=== PATIENT | male | born 1965 | race Caucasian/White ===

== ENCOUNTER 2018-10-13 14:26 | Inpatient (IN) | payer MEDICARE, MEDICAID ==
[~2018-10-13] VITALS: Ht 167.6 cm; Wt 84.6 kg
[~2018-10-13 14:26] MED LIST: LAMO200T PO; LISI-660 PO; OLAN10TA3 PO; TEMA15CA PO; TRAZ150 PO; XALA2.5OS OU
[2018-10-13] MEDS ORDERED: HALOPERIDOL 5 MG TABLET PO PRN (15:15)
[2018-10-13] MEDS ORDERED: LORazepam 2 MG TABLET PO PRN (15:15)
[2018-10-13] MEDS ORDERED: LISI-661 PO (15:17)
[2018-10-13] MEDS ORDERED: TAFL1DRO OU (15:17)
[2018-10-13] MEDS ORDERED: TRAZ-220 PO (15:17)
[2018-10-13] MEDS ORDERED: ZOLP10TA7 PO (15:18)
[2018-10-13 15:34] VITALS: BP 156/93
[2018-10-13 16:31] VITALS: BP 126/89
[2018-10-13] MEDS ORDERED: MAG HYDROX/AL HYDROX/SIMETH ES 30 ML SUSPENSION UDCUP PO PRN (16:45)
[2018-10-13] MEDS ORDERED: ACETAMINOPHEN 325 MG TABLET PO PRN (16:45)
[2018-10-13] MEDS ORDERED: MAGNESIUM HYDROXIDE SUSPENSION 30 ML UDCUP PO PRN (16:45)
[2018-10-13] MEDS ORDERED: ONDANSETRON HCL 4 MG TABLET PO PRN (16:45)
[2018-10-13] MEDS ORDERED: IBUPROFEN 600 MG TABLET PO PRN (16:45)
[2018-10-13] MEDS ORDERED: BENZOCAINE/MENTHOL LOZENGE MM PRN (16:45)
[2018-10-13] MEDS ORDERED: ALBUTEROL SULFATE HFA 90 MCG/PUFF 8 GM INHALER IH PRN (16:45)
[2018-10-13] MEDS ORDERED: BACITRACIN 28.4 GM OINTMENT TP PRN (16:45)
[2018-10-13] MEDS ORDERED: PETROLATUM,WHITE 28 GM JELLY TP PRN (16:45)
[2018-10-13] MEDS ORDERED: CloNIDine HCL 0.1 MG TABLET PO PRN (16:45)
[2018-10-13] MEDS ORDERED: PNEUMOCOCCAL VACCINE POLYVALENT 0.5 ML VIAL [PPSV23] IM ONE (17:00)
[2018-10-13] MEDS: LamoTRIgine 100 MG TABLET PO SCH (20:56)
[2018-10-13] MEDS: LISINOPRIL 10 MG TABLET PO SCH (20:56)
[2018-10-13] MEDS: OLANZapine 7.5 MG TABLET PO SCH (20:56)
[2018-10-13] MEDS: TraZODone HCL 100 MG TABLET PO SCH (20:57)
[2018-10-13] MEDS: ZOLPIDEM TARTRATE 10 MG TABLET PO PRN (21:18)
[2018-10-13] MEDS: LOPERAMIDE HCL 2 MG CAPSULE PO PRN (23:33)
[2018-10-14 00:01] VITALS: BP 126/84
[2018-10-14 07:19] LABS: BASOPHILS % (AUTO) 1.5 % (0.0-2.0); HEMATOCRIT 46.6 % (41-53); HEMOGLOBIN 15.6 g/dL (13.5-17.5); LYMPHOCYTES # (AUTO) 1.4 K/uL (1.0-4.8); LYMPHOCYTES % (AUTO) 27.7 % (22.0-44.0); MEAN CORPUSCULAR HEMOGLOBIN 29.4 pg (26.0-34.0); MEAN CORPUSCULAR HGB CONC 33.5 G/dL (31.0-37.0); MEAN CORPUSCULAR VOLUME 88 fL (80-100); MONOCYTES # (AUTO) 0.5 K/uL (0.1-1.0); MONOCYTES % (AUTO) 10.5 % (2.0-9.0); NEUTROPHILS # (AUTO) 2.6 K/uL (1.8-7.7); NEUTROPHILS % (AUTO) 52.3 % (40.0-70.0); PLATELET COUNT (AUTO) 252 K/uL (150-450); RED BLOOD CELL COUNT(AUTO) 5.32 MIL/uL (4.50-5.90)
[2018-10-14 08:04] LABS: ALANINE AMINOTRANSFERASE 33 U/L (12-78); ALKALINE PHOSPHATASE 85 U/L (46-116); ANION GAP 10 mmol/L (8-16); ASPARTATE AMINOTRANSFERASE 16 U/L (15-37); BILIRUBIN,TOTAL 0.6 mg/dL (0.1-1.0); CALCIUM, TOTAL 8.8 mg/dL (8.8-10.5); CARBON DIOXIDE 28 mmol/L (22-29); CHLORIDE 105 mmol/L (98-107); CHOL/HDL RATIO 3.6 (4.2-7.3); CHOLESTEROL 155 mg/dL (131-200); CREATININE 1.06 mg/dL (0.60-1.30); FREE T4 (FREE THYROXINE) 1.18 ng/dL (0.76-1.46); GLOMERULAR FILTR. RATE CALC > 60 mL/min (>60); GLUCOSE,RANDOM 114 mg/dL (70-110); HDL CHOLESTEROL 43 mg/dL (40-60); LDL CHOL (CALC.) 96 mg/dL (0-130); POTASSIUM 4.8 mmol/L (3.5-5.1); SODIUM SERUM 143 mmol/L (136-145); THYROID STIMULATING HORMONE 3.95 uIU/mL (0.36-3.74); TOTAL PROTEIN, SERUM 7.2 g/dL (6.4-8.2); TRIGLYCERIDES 81 mg/dL (15-150); UREA NITROGEN, BLOOD 13 mg/dL (7-18)
[2018-10-14 08:42] VITALS: BP 120/66
[2018-10-14] MEDS: DOCUSATE SODIUM 100 MG CAPSULE PO SCH (09:00)
[2018-10-14] MEDS: LATANOPROST 0.005% 2.5 ML OPHTHALMIC SOLUTION OU SCH (09:14)
[2018-10-14] MEDS: OMEPRAZOLE 20 MG CAPSULE PO SCH (09:14)
[2018-10-14] MEDS: LOPERAMIDE HCL 2 MG CAPSULE PO PRN (13:43)
[2018-10-14 16:21] VITALS: BP 122/70
[2018-10-14] MEDS: TraZODone HCL 100 MG TABLET PO SCH (21:24)
[2018-10-14] MEDS: OLANZapine 7.5 MG TABLET PO SCH (21:24)
[2018-10-14] MEDS: LISINOPRIL 10 MG TABLET PO SCH (21:24)
[2018-10-14] MEDS: LamoTRIgine 100 MG TABLET PO SCH (21:24)
[2018-10-14] MEDS: ZOLPIDEM TARTRATE 10 MG TABLET PO PRN (21:25)
[2018-10-15 05:52] VITALS: BP 108/60
[2018-10-15] MEDS: LEVOTHYROXINE SODIUM 25 MCG TABLET PO SCH (06:40)
[2018-10-15 08:24] VITALS: BP 105/65
[2018-10-15] MEDS: DOCUSATE SODIUM 100 MG CAPSULE PO SCH (08:47)
[2018-10-15] MEDS: OMEPRAZOLE 20 MG CAPSULE PO SCH (08:47)
[2018-10-15] MEDS: LATANOPROST 0.005% 2.5 ML OPHTHALMIC SOLUTION OU SCH ×2 (09:00→15:55)
[2018-10-15 16:54] VITALS: BP 107/60
[2018-10-15] MEDS: LISINOPRIL 10 MG TABLET PO SCH (20:33)
[2018-10-15] MEDS: LamoTRIgine 100 MG TABLET PO SCH (20:33)
[2018-10-15] MEDS: TraZODone HCL 100 MG TABLET PO SCH (20:33)
[2018-10-15] MEDS: OLANZapine 7.5 MG TABLET PO SCH (20:34)
[2018-10-15] MEDS: ZOLPIDEM TARTRATE 10 MG TABLET PO PRN (20:46)
[2018-10-16 06:55] VITALS: BP 120/72
[2018-10-16] MEDS: LEVOTHYROXINE SODIUM 25 MCG TABLET PO SCH (07:03)
[2018-10-16 08:00] VITALS: BP 130/75
[2018-10-16] MEDS ORDERED: OMEP20 PO (09:45)
[2018-10-16] MEDS ORDERED: LEVO25TA9 PO (09:45)
[2018-10-16] MEDS ORDERED: DOCU-119 PO (09:45)
[2018-10-16] MEDS ORDERED: LATA2.5D2 OU (09:45)
[2018-10-16] MEDS: DOCUSATE SODIUM 100 MG CAPSULE PO SCH (10:14)
[2018-10-16] MEDS: OMEPRAZOLE 20 MG CAPSULE PO SCH (10:14)
[2018-10-16] MEDS: LATANOPROST 0.005% 2.5 ML OPHTHALMIC SOLUTION OU SCH (10:25)
[2018-10-16] MEDS: LOPERAMIDE HCL 2 MG CAPSULE PO PRN (11:19)
== END 2018-10-16 12:10 | disposition home or self-care (01) | DRG 885 ==
LOC: B2S 15:09
PROVIDERS: ADMIT Psychiatry & Neurology Psychiatry; ATTEND Psychiatry & Neurology Psychiatry
DX: F25.9 Schizoaffective disorder, unspecified (principal); F41.9 Anxiety disorder, unspecified; G47.00 Insomnia, unspecified; H40.9 Unspecified glaucoma; I10 Essential (primary) hypertension; K21.9 Gastro-esophageal reflux disease without esophagitis; E03.9 Hypothyroidism, unspecified; Z79.899 Other long term (current) drug therapy; Z56.0 Unemployment, unspecified
CPT/HCPCS: 83036; 84439; 84443

== ENCOUNTER 2019-07-05 13:51 | Inpatient (IN) | payer MEDICARE, MEDICAID ==
[~2019-07-05] VITALS: Ht 167.6 cm; Wt 85.8 kg
[~2019-07-05 13:51] MED LIST changes: +DOCU-119 PO; +LATA2.5D2 OU; +LEVO25TA9 PO; -LISI-660 PO; +LISI-661 PO; +OMEP20 PO; +TAFL1DRO OU; -TEMA15CA PO; +TRAZ-257 PO; -TRAZ150 PO; -XALA2.5OS OU; +ZOLP10TA7 PO
[2019-07-05 13:57] VITALS: BP 125/92
[2019-07-05] MEDS ORDERED: HALOPERIDOL 5 MG TABLET PO PRN (14:00)
[2019-07-05] MEDS ORDERED: AMLO5TAB9 PO (14:18)
[2019-07-05] MEDS ORDERED: ESTA1TAB2 PO (14:18)
[2019-07-05] MEDS ORDERED: METF-463 PO (14:18)
[2019-07-05] MEDS ORDERED: LISI-662 PO (14:18)
[2019-07-05] MEDS ORDERED: LEVO25TA9 PO (14:18)
[2019-07-05] MEDS ORDERED: TRAZ-257 PO (14:18)
[2019-07-05] MEDS ORDERED: OLAN10TA3 PO (14:18)
[2019-07-05] MEDS ORDERED: PNEUMOCOCCAL VACCINE POLYVALENT 0.5 ML VIAL [PPSV23] IM ONE (14:45)
[2019-07-05 16:01] LABS: GLUCOMETER DEV NAME(LOC) BV2X.; GLUCOSE,POINT OF CARE 178 MG/DL (70-110)
[2019-07-05 16:20] VITALS: BP 130/78
[2019-07-05] MEDS ORDERED: LEVOTHYROXINE SODIUM 25 MCG TABLET PO SCH (21:00)
[2019-07-05] MEDS: ZOLPIDEM TARTRATE 10 MG TABLET PO PRN (21:24)
[2019-07-06 00:35] VITALS: BP 134/91
[2019-07-06] MEDS: LORazepam 2 MG TABLET PO PRN ×3 (00:38→23:25)
[2019-07-06 06:22] LABS: GLUCOMETER DEV NAME(LOC) BV2X.; GLUCOSE,POINT OF CARE 150 MG/DL (70-110)
[2019-07-06] MEDS ORDERED: MetFORMIN HCL 500 MG ER TABLET PO SCH (07:00)
[2019-07-06 07:54] LABS: BASOPHILS % (AUTO) 0.3 % (0.0-2.0); EOSINOPHILS % (AUTO) 3.4 % (1.0-6.0); HEMATOCRIT 40.8 % (41-53); HEMOGLOBIN 14.3 g/dL (13.5-17.5); LYMPHOCYTES # (AUTO) 1.6 K/uL (1.0-4.8); LYMPHOCYTES % (AUTO) 29.1 % (22.0-44.0); MEAN CORPUSCULAR HEMOGLOBIN 30.7 pg (26.0-34.0); MEAN CORPUSCULAR HGB CONC 35.1 G/dL (31.0-37.0); MEAN CORPUSCULAR VOLUME 87 fL (80-100); MONOCYTES # (AUTO) 0.6 K/uL (0.1-1.0); MONOCYTES % (AUTO) 10.5 % (2.0-9.0); NEUTROPHILS % (AUTO) 56.7 % (40.0-70.0); PLATELET COUNT (AUTO) 219 K/uL (150-450); RED BLOOD CELL COUNT(AUTO) 4.67 MIL/uL (4.50-5.90); RED CELL DISTRIBUTION WIDTH 13.6 % (11.5-14.5)
[2019-07-06 08:14] LABS: ALANINE AMINOTRANSFERASE 48 U/L (12-78); ALBUMIN 3.8 g/dL (3.4-5.0); ALKALINE PHOSPHATASE 99 U/L (46-116); ANION GAP 9 mmol/L (8-16); ASPARTATE AMINOTRANSFERASE 18 U/L (15-37); BILIRUBIN,TOTAL 0.4 mg/dL (0.1-1.0); CALCIUM, TOTAL 8.5 mg/dL (8.8-10.5); CARBON DIOXIDE 27 mmol/L (22-29); CHLORIDE 103 mmol/L (98-107); CHOL/HDL RATIO 4.2 (4.2-7.3); CHOLESTEROL 164 mg/dL (131-200); CREATININE 0.89 mg/dL (0.60-1.30); FREE T4 (FREE THYROXINE) 1.17 ng/dL (0.76-1.46); GLOMERULAR FILTR. RATE CALC > 60 mL/min (>60); GLUCOSE,RANDOM 149 mg/dL (70-110); HDL CHOLESTEROL 39 mg/dL (40-60); LDL CHOL (CALC.) 107 mg/dL (0-130); POTASSIUM 4.1 mmol/L (3.5-5.1); SODIUM SERUM 139 mmol/L (136-145); TOTAL PROTEIN, SERUM 7.3 g/dL (6.4-8.2); TRIGLYCERIDES 92 mg/dL (15-150); UREA NITROGEN, BLOOD 13 mg/dL (7-18)
[2019-07-06 08:17] VITALS: BP 138/84
[2019-07-06] MEDS: LATANOPROST 0.005% 2.5 ML OPHTHALMIC SOLUTION OU SCH (08:24)
[2019-07-06 08:32] LABS: HEMOGLOBIN A1C 7.2 % (4.5-6.2)
[2019-07-06] MEDS ORDERED: LISINOPRIL 20 MG TABLET PO SCH (09:00)
[2019-07-06] MEDS ORDERED: AmLODIPine BESYLATE 5 MG TABLET PO SCH (09:00)
[2019-07-06] MEDS ORDERED: LOPERAMIDE HCL 2 MG CAPSULE PO PRN (09:30)
[2019-07-06] MEDS ORDERED: MAG HYDROX/AL HYDROX/SIMETH ES 30 ML SUSPENSION UDCUP PO PRN (09:30)
[2019-07-06] MEDS ORDERED: IBUPROFEN 400 MG TABLET PO PRN (09:30)
[2019-07-06] MEDS ORDERED: MAGNESIUM HYDROXIDE SUSPENSION 30 ML UDCUP PO PRN (09:30)
[2019-07-06] MEDS ORDERED: CloNIDine HCL 0.1 MG TABLET PO PRN (09:30)
[2019-07-06] MEDS ORDERED: ACETAMINOPHEN 325 MG TABLET PO PRN (09:30)
[2019-07-06] MEDS ORDERED: NICOTINE 14 MG/24 HOUR PATCH TD PRN (09:30)
[2019-07-06] MEDS ORDERED: ONDANSETRON HCL 4 MG TABLET PO PRN (09:30)
[2019-07-06] MEDS ORDERED: ALBUTEROL SULFATE HFA 90 MCG/PUFF 8 GM INHALER IH PRN (09:30)
[2019-07-06] MEDS ORDERED: GuaiFENesin/D-METHORPHAN [SUGAR-FREE] 200-20MG/10 ML SYRUP UDCUP PO PRN (09:30)
[2019-07-06] MEDS ORDERED: DOCUSATE SODIUM 100 MG CAPSULE PO PRN (09:30)
[2019-07-06] MEDS ORDERED: PETROLATUM,WHITE 28 GM JELLY TP PRN (09:30)
[2019-07-06 16:18] VITALS: BP 134/87
[2019-07-06 16:24] LABS: GLUCOMETER DEV NAME(LOC) BV2X.; GLUCOSE,POINT OF CARE 129 MG/DL (70-110)
[2019-07-06] MEDS: TraZODone HCL 100 MG TABLET PO SCH (20:45)
[2019-07-06] MEDS: OLANZapine 10 MG TABLET PO SCH (20:46)
[2019-07-06] MEDS: TEMAZEPAM 15 MG CAPSULE PO SCH (20:48)
[2019-07-06] MEDS: LamoTRIgine 100 MG TABLET PO SCH (20:48)
[2019-07-06] MEDS: ZOLPIDEM TARTRATE 10 MG TABLET PO PRN (23:25)
[2019-07-07 00:22] VITALS: BP 102/69
[2019-07-07 06:16] LABS: GLUCOMETER DEV NAME(LOC) BV2X.; GLUCOSE,POINT OF CARE 174 MG/DL (70-110)
[2019-07-07] MEDS: LEVOTHYROXINE SODIUM 25 MCG TABLET PO SCH (06:48)
[2019-07-07] MEDS: MetFORMIN HCL 500 MG ER TABLET PO SCH (06:48)
[2019-07-07 08:20] VITALS: BP 109/77
[2019-07-07] MEDS: AmLODIPine BESYLATE 5 MG TABLET PO SCH (08:56)
[2019-07-07] MEDS: LISINOPRIL 20 MG TABLET PO SCH (08:57)
[2019-07-07] MEDS: LATANOPROST 0.005% 2.5 ML OPHTHALMIC SOLUTION OU SCH (09:46)
[2019-07-07 16:39] VITALS: BP 128/83
[2019-07-07] MEDS: TEMAZEPAM 15 MG CAPSULE PO SCH (20:43)
[2019-07-07] MEDS: OLANZapine 10 MG TABLET PO SCH (20:43)
[2019-07-07] MEDS: LamoTRIgine 100 MG TABLET PO SCH (20:43)
[2019-07-07] MEDS: TraZODone HCL 100 MG TABLET PO SCH (20:44)
[2019-07-07] MEDS: ZOLPIDEM TARTRATE 10 MG TABLET PO PRN (22:39)
[2019-07-08] MEDS: LORazepam 2 MG TABLET PO PRN (00:20)
[2019-07-08 02:35] VITALS: BP 118/80
[2019-07-08 06:20] LABS: GLUCOMETER DEV NAME(LOC) BV2X.; GLUCOSE,POINT OF CARE 142 MG/DL (70-110)
[2019-07-08] MEDS: MetFORMIN HCL 500 MG ER TABLET PO SCH (07:08)
[2019-07-08] MEDS: LEVOTHYROXINE SODIUM 25 MCG TABLET PO SCH (07:08)
[2019-07-08 08:14] VITALS: BP 104/56
[2019-07-08 08:45] VITALS: BP 118/75
[2019-07-08] MEDS: LATANOPROST 0.005% 2.5 ML OPHTHALMIC SOLUTION OU SCH (09:31)
[2019-07-08] MEDS: AmLODIPine BESYLATE 5 MG TABLET PO SCH (09:32)
[2019-07-08] MEDS: LISINOPRIL 20 MG TABLET PO SCH (09:32)
[2019-07-08 16:30] VITALS: BP 117/73
[2019-07-08] MEDS: TraZODone HCL 100 MG TABLET PO SCH (20:17)
[2019-07-08] MEDS: TEMAZEPAM 15 MG CAPSULE PO SCH (20:17)
[2019-07-08] MEDS: LamoTRIgine 100 MG TABLET PO SCH (20:17)
[2019-07-08] MEDS: OLANZapine 10 MG TABLET PO SCH (20:17)
[2019-07-09 00:08] VITALS: BP 113/68
[2019-07-09] MEDS: LEVOTHYROXINE SODIUM 25 MCG TABLET PO SCH (06:27)
[2019-07-09] MEDS: MetFORMIN HCL 500 MG ER TABLET PO SCH (06:28)
[2019-07-09 06:41] LABS: GLUCOMETER DEV NAME(LOC) BV2X.; GLUCOSE,POINT OF CARE 152 MG/DL (70-110)
[2019-07-09 08:31] VITALS: BP 131/69
[2019-07-09] MEDS: AmLODIPine BESYLATE 5 MG TABLET PO SCH (09:46)
[2019-07-09] MEDS: LISINOPRIL 20 MG TABLET PO SCH (09:46)
[2019-07-09] MEDS: LATANOPROST 0.005% 2.5 ML OPHTHALMIC SOLUTION OU SCH (09:53)
[2019-07-09 16:21] VITALS: BP 130/90
[2019-07-09 17:06] LABS: GLUCOMETER DEV NAME(LOC) BV2X.; GLUCOSE,POINT OF CARE 307 MG/DL (70-110)
[2019-07-09] MEDS: OLANZapine 10 MG TABLET PO SCH (20:30)
[2019-07-09] MEDS: TEMAZEPAM 15 MG CAPSULE PO SCH (20:30)
[2019-07-09] MEDS: LamoTRIgine 100 MG TABLET PO SCH (20:31)
[2019-07-09] MEDS: TraZODone HCL 100 MG TABLET PO SCH (20:31)
[2019-07-09] MEDS: ZOLPIDEM TARTRATE 10 MG TABLET PO PRN (22:09)
[2019-07-10 00:43] VITALS: BP 100/62
[2019-07-10] MEDS: LEVOTHYROXINE SODIUM 25 MCG TABLET PO SCH (06:21)
[2019-07-10] MEDS: MetFORMIN HCL 500 MG ER TABLET PO SCH (06:27)
[2019-07-10 06:37] LABS: GLUCOMETER DEV NAME(LOC) BV2X.; GLUCOSE,POINT OF CARE 162 MG/DL (70-110)
[2019-07-10 08:22] VITALS: BP 134/69
[2019-07-10] MEDS: LISINOPRIL 20 MG TABLET PO SCH (09:19)
[2019-07-10] MEDS: AmLODIPine BESYLATE 5 MG TABLET PO SCH (09:19)
[2019-07-10] MEDS: LATANOPROST 0.005% 2.5 ML OPHTHALMIC SOLUTION OU SCH (09:19)
[2019-07-10] MEDS ORDERED: TEMA15CA PO (09:30)
[2019-07-10] MEDS ORDERED: XALA2.5OS OU (09:37)
== END 2019-07-10 10:30 | disposition home or self-care (01) | DRG 885 ==
LOC: B2X 15:04
PROVIDERS: ADMIT Psychiatry & Neurology Psychiatry; ATTEND Psychiatry & Neurology Psychiatry
DX: F20.0 Paranoid schizophrenia (principal); Z28.21 Immunization not carried out because of patient refusal; E03.9 Hypothyroidism, unspecified; E11.9 Type 2 diabetes mellitus without complications; E78.5 Hyperlipidemia, unspecified; I10 Essential (primary) hypertension; K21.9 Gastro-esophageal reflux disease without esophagitis; Z90.49 Acquired absence of other specified parts of digestive tract
CPT/HCPCS: 83036; 84439; 84443; 90732

== ENCOUNTER 2021-04-22 17:34 | Emergency (ER) | payer MEDICARE, OTHER ==
[~2021-04-22] VITALS: Ht 167.6 cm; Wt 86.4 kg
[~2021-04-22 17:34] MED LIST changes: +AMLO-257 PO; -DOCU-119 PO; -LATA2.5D2 OU; -LISI-661 PO; +LISI-894 PO; +METF-911 PO; -OLAN10TA3 PO; +OLAN10TA74 PO; -OMEP20 PO; -TAFL1DRO OU; +TEMA15CA PO; +XALA2.5OS OU; -ZOLP10TA7 PO
[2021-04-22 17:45] VITALS: BP 158/95
== END 2021-04-22 19:54 | disposition home or self-care (01) ==
LOC: EMS 17:34
DX: M25.512 Pain in left shoulder (principal); F31.9 Bipolar disorder, unspecified; I10 Essential (primary) hypertension; F20.9 Schizophrenia, unspecified
CPT/HCPCS: 99283